=== PATIENT | male | born 1950 | race Caucasian/White ===

== ENCOUNTER 2016-11-08 08:30 | Outpatient (CLI) | payer BC, MEDICARE ==
[2016-11-08 09:11] LABS: #Basophils 0.1 thou/uL (0.0-0.2); #Eosinphils 0.3 thou/uL (0.0-0.7); #Lymphocytes 2.9 thou/uL (1.20-3.40); #Monocytes 0.7 thou/uL (0.11-0.59); #Neutrophils 4.2 thou/uL (1.40-6.50); %Basophils 1.4 % (0.0-1.0); %Eosinophils 4.1 % (0.0-10.0); %Lymphocytes 35.2 % (21.0-51.0); %Monocytes 8.8 % (0.0-10.0); %Neutrophils 50.6 % (42.0-75.0); Hemoglobin 15.3 g/dL (14.0-18.0); Mean Corpuscular HGB CONC 34.1 g/dL (32.0-36.0); Mean Corpuscular Hemoglobin 32.1 pg (27.0-31.0); Mean Corpuscular Volume 94.2 fl (80.0-94.0); Mean Platelet Volume 8.5 fL (7.4-10.4); Platelet Count 171 thou/uL (130-400); RBC Distribution Width 12.2 % (11.5-14.5); Red Blood Cell (RBC) Count 4.76 mill/uL (4.70-6.10); White Blood Cell (WBC) Count 8.3 thou/uL (4.8-10.8)
[2016-11-08 09:39] LABS: ALT (SGPT) 17 U/L (8-55); AST (SGOT) 21 U/L (5-34); Albumin 3.9 g/dL (3.4-4.8); Alkaline Phosphatase 96 U/L (40-150); Anion Gap 15 mmol/L (10-20); BUN (Urea Nitrogen) 17 mg/dL (8.4-25.7); Bilirubin, Total 1.1 mg/dL (0.2-1.2); Calc. Creatinine Clearance 0 mL/min (70-130); Calcium 9.3 mg/dL (7.8-10.44); Carbon Dioxide 28 mmol/L (23-31); Cardiac Risk 2.6 (Less than 4.5); Chloride 94 mmol/L (98-107); Cholesterol 130 mg/dL (< 200 Desired); Estimated GFR-MDRD 74; Glucose 87 mg/dL (80-115); HDL Cholesterol 50 mg/dL (>60 Neg Risk); LDL Cholesterol, Calculated 63 mg/dL; Potassium 5.2 mmol/L (3.5-5.1); Protein, Total 6.9 g/dL (5.8-8.1); Sodium 132 mmol/L (136-145); Triglycerides 83 mg/dL (Less than 150)
== END 2016-11-08 08:31 | disposition home or self-care (01) ==
LOC: BURLAB 08:30
PROVIDERS: ATTEND Internal Medicine Cardiovascular Disease
DX: I25.10 Atherosclerotic heart disease of native coronary artery without angina pectoris (principal); I10 Essential (primary) hypertension
CPT/HCPCS: 36415; 80053; 80061; 85025

== ENCOUNTER 2018-01-04 15:41 | Emergency (ER) | payer BC, MEDICARE ==
[2018-01-04] MEDS ORDERED: methylPREDNISolone Sod Succ/PF 125 MG/2 ML VIAL ONE (16:05)
[2018-01-04 16:08] LABS: #Basophils 0.1 thou/uL (0.0-0.2); #Eosinphils 0.3 thou/uL (0.0-0.7); #Lymphocytes 2.2 thou/uL (1.20-3.40); #Monocytes 1.2 thou/uL (0.11-0.59); #Neutrophils 8.1 thou/uL (1.40-6.50); %Basophils 0.7 % (0.0-1.0); %Eosinophils 2.5 % (0.0-10.0); %Lymphocytes 18.8 % (21.0-51.0); Hemoglobin 14.8 g/dL (14.0-18.0); Mean Corpuscular HGB CONC 34.6 g/dL (32.0-36.0); Mean Corpuscular Hemoglobin 30.5 pg (27.0-31.0); Mean Corpuscular Volume 88.2 fL (78.0-98.0); Mean Platelet Volume 6.8 fL (7.4-10.4); Platelet Count 176 thou/uL (130-400); RBC Distribution Width 12.5 % (11.5-14.5); Red Blood Cell (RBC) Count 4.84 mill/uL (4.70-6.10); White Blood Cell (WBC) Count 11.9 thou/uL (4.8-10.8)
[2018-01-04 16:25] LABS: ALT (SGPT) 15 U/L (8-55); AST (SGOT) 14 U/L (5-34); Albumin 3.9 g/dL (3.4-4.8); Alkaline Phosphatase 133 U/L (40-150); Anion Gap 16 mmol/L (10-20); BUN (Urea Nitrogen) 15 mg/dL (8.4-25.7); Bilirubin, Total 0.5 mg/dL (0.2-1.2); Calc. Creatinine Clearance 0 mL/min (70-130); Calcium 9.6 mg/dL (7.8-10.44); Carbon Dioxide 25 mmol/L (23-31); Chloride 102 mmol/L (98-107); Estimated GFR-MDRD 73; Globulin 3.6 g/dL (2.4-3.5); Glucose 151 mg/dL (80-115); Potassium 4.1 mmol/L (3.5-5.1); Protein, Total 7.5 g/dL (5.8-8.1); Sodium 139 mmol/L (136-145)
[2018-01-04 16:28] LABS: CKMB 2.1 ng/mL (0-6.6); Troponin I Less than 0.010 ng/mL (< 0.028)
--- NOTE | 2018-01-04 16:31 | RAD ---
PORTABLE CHEST: 01/04/18 HISTORY: Dyspnea. COMPARISON: 11/17/17. The lungs appear clear. No infiltrate or vascular congestion. Heart size within normal range. Postop changes again noted. No change from prior exam. IMPRESSION: No acute process. POS: [facility]
== END 2018-01-04 16:54 | disposition home or self-care (01) ==
LOC: BURERS 15:41
DX: J44.1 Chronic obstructive pulmonary disease with (acute) exacerbation (principal); I10 Essential (primary) hypertension; F17.210 Nicotine dependence, cigarettes, uncomplicated; Z79.899 Other long term (current) drug therapy; Z79.891 Long term (current) use of opiate analgesic
CPT/HCPCS: 71045; 80053; 82553; 83880; 84484; 85025; 93005; 94640; 96374; J2930; J7620

== ENCOUNTER 2020-03-28 14:39 | Outpatient (CLI) | payer BC, MEDICARE ==
--- NOTE | 2020-03-28 16:40 | RAD ---
RIGHT SHOULDER THREE VIEWS: 03/28/20 No fracture, dislocation, or AC joint widening was seen. Arthritic changes are present in the AC join t consistent with prominent osteophytes. A speckled sclerotic area in the proximal humeral shaft is m ost likely a small bone infarct. The visible adjacent ribs appeared intact. 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 No acute findings. POS: HOME
--- NOTE | 2020-03-28 16:42 | RAD ---
LEFT SHOULDER THREE VIEWS: 03/28/20 Prior surgery has been done on this study. There is some narrowing of the space between the humeral h ead and acromion and possibly some calcification in some of the rotator cuff tendons just above the h umeral head. Some irregularity of the distal end of the clavicle probably speaks to prior trauma here . Mild arthritic changes are present there as well. IMPRESSION: Chronic findings but no acute changes. POS: HOME
== END 2020-03-28 14:40 | disposition home or self-care (01) ==
LOC: BURRAD 14:39
PROVIDERS: ATTEND Family Medicine
DX: M25.511 Pain in right shoulder (principal); M25.512 Pain in left shoulder; M19.011 Primary osteoarthritis, right shoulder

== ENCOUNTER 2021-10-10 17:18 | Emergency (ER) | payer BC, MEDICARE ==
[2021-10-10] MEDS ORDERED: Iopamidol 370 76% 100 ML VIAL FS ONE (17:19)
[2021-10-10 18:12] LABS: Hemoglobin 12.7 g/dL (14.0-18.0); Mean Corpuscular HGB CONC 32.7 g/dL (32.0-36.0); Mean Corpuscular Hemoglobin 32.5 pg (27.0-31.0); Mean Corpuscular Volume 99.5 fL (78.0-98.0); Platelet Count 97 thou/uL (130-400); RBC Distribution Width 12.4 % (11.5-14.5); Red Blood Cell (RBC) Count 3.91 mill/uL (4.70-6.10); White Blood Cell (WBC) Count 16.6 thou/uL (4.8-10.8)
[2021-10-10 18:26] LABS: ALT (SGPT) 22 U/L (8-55); AST (SGOT) 13 U/L (5-34); Albumin 2.4 g/dL (3.4-4.8); Alkaline Phosphatase 61 U/L (40-110); Anion Gap 13 mmol/L (10-20); BUN (Urea Nitrogen) 51 mg/dL (8.4-25.7); Bilirubin, Total 0.5 mg/dL (0.2-1.2); CK (CPK) 37 U/L (30-200); Calc. Creatinine Clearance 0 mL/min (70-130); Calcium 7.3 mg/dL (7.8-10.44); Carbon Dioxide 26 mmol/L (23-31); Chloride 106 mmol/L (98-107); Globulin 2.6 g/dL (2.4-3.5); Glucose 251 mg/dL (83-110); Sodium 142 mmol/L (136-145)
[2021-10-10 18:46] LABS: Band 6 % (5-11); Lymphocytes 2 % (21-51); MDiff Complete? YES; Monocytes 1 % (0-10); Neutrophil 91 % (42-75)
[2021-10-10 21:03] LABS: Bilirubin Negative (Negative); Blood, Urine Negative (Negative); Clarity Clear (Clear); Glucose, Urine (Dipstick) 100 mg/dL (Negative); Ketone, Urine Trace mg/dL (Negative); Leukocyte Negative (Negative); Nitrite Negative (Negative); Protein, Urine (Dipstick) 100 mg/dL (Neg-Trace); Urobilinogen 0.2 mg/dL (Less than 2); pH, Urine 5.5 (5.0-9.0)
[2021-10-10 21:04] LABS: Mucous/LPF 1+ LPF (<2+); RBC/HPF 0-3 HPF (0-3); WBC/HPF 0-3 HPF (0-3)
== END 2021-10-10 22:33 | disposition short-term general hospital (02) ==
LOC: BURERS 17:18
DX: I95.9 Hypotension, unspecified (principal); E86.0 Dehydration; J44.9 Chronic obstructive pulmonary disease, unspecified; J18.9 Pneumonia, unspecified organism; J10.1 Influenza due to other identified influenza virus with other respiratory manifestations; I45.10 Unspecified right bundle-branch block; I49.9 Cardiac arrhythmia, unspecified; F17.210 Nicotine dependence, cigarettes, uncomplicated; I25.10 Atherosclerotic heart disease of native coronary artery without angina pectoris; I50.9 Heart failure, unspecified; I25.2 Old myocardial infarction; Z95.5 Presence of coronary angioplasty implant and graft; Z85.51 Personal history of malignant neoplasm of bladder; Z79.82 Long term (current) use of aspirin; Z79.899 Other long term (current) drug therapy
CPT/HCPCS: 36415; 71045; 71275; 80053; 81003; 81015; 82550; 83605; 83880; 84484; 85025; 85379; 86140; 87040; 87077; 87086; 87186; 87804; 93005; 94760; 96365; 96366; Q9967

== ENCOUNTER 2021-10-21 09:11 | Inpatient (IN) | payer BC, MEDICARE ==
[2021-10-21] MEDS ORDERED: Ondansetron ODT 4 MG TAB PO PRN (10:57)
[2021-10-21] MEDS ORDERED: Acetaminophen 325 MG TAB PO PRN (10:57)
[2021-10-21] MEDS ORDERED: Senokot S 8.6-50 MG TAB PO PRN (10:58)
[2021-10-21 11:05] LABS: #Eosinphils 0.1 thou/uL (0.0-0.7); #Lymphocytes 0.9 thou/uL (1.20-3.40); #Monocytes 0.5 thou/uL (0.11-0.59); #Neutrophils 9.4 thou/uL (1.40-6.50); %Basophils 0.4 % (0.0-1.0); %Eosinophils 0.5 % (0.0-10.0); %Lymphocytes 8.3 % (21.0-51.0); %Monocytes 4.9 % (0.0-10.0); %Neutrophils 85.9 % (42.0-75.0); Mean Corpuscular HGB CONC 31.5 g/dL (32.0-36.0); Mean Corpuscular Hemoglobin 32.2 pg (27.0-31.0); Mean Platelet Volume 8.7 fL (7.4-10.4); Platelet Count 113 thou/uL (130-400); RBC Distribution Width 12.3 % (11.5-14.5); Red Blood Cell (RBC) Count 3.73 mill/uL (4.70-6.10); White Blood Cell (WBC) Count 10.9 thou/uL (4.8-10.8)
[2021-10-21 11:24] LABS: ALT (SGPT) 24 U/L (8-55); AST (SGOT) 13 U/L (5-34); Albumin 2.8 g/dL (3.4-4.8); Alkaline Phosphatase 80 U/L (40-110); Anion Gap 16 mmol/L (10-20); BUN (Urea Nitrogen) 33 mg/dL (8.4-25.7); Bilirubin, Total 0.8 mg/dL (0.2-1.2); Calc. Creatinine Clearance 0 mL/min (70-130); Calcium 8.4 mg/dL (7.8-10.44); Carbon Dioxide 28 mmol/L (23-31); Chloride 98 mmol/L (98-107); Globulin 3.1 g/dL (2.4-3.5); Glucose 448 mg/dL (83-110); Potassium 4.4 mmol/L (3.5-5.1); Protein, Total 5.9 g/dL (5.8-8.1); Sodium 138 mmol/L (136-145)
[2021-10-21] MEDS ORDERED: Albuterol Sulfate 2.5 mg/3 ml Neb NEB PRN (11:45)
[2021-10-21] MEDS ORDERED: Potassium Chloride 20 MEQ TAB PO SCH (12:00)
[2021-10-21] MEDS ORDERED: Torsemide 20 MG TAB PO SCH (12:00)
[2021-10-21 12:14] LABS: Platelet Morphology Comment Appears Decreased; RBC Morphology Normal
[2021-10-21 14:15] VITALS: BMI 17.4
[2021-10-21] MEDS: Carvedilol 25 MG TAB PO SCH (18:00)
[2021-10-21] MEDS: Nicotine 21 MG PATCH TD SCH (18:01)
[2021-10-21] MEDS: guaiFENesin ER 600 MG TAB PO SCH (20:54)
[2021-10-21] MEDS: CLONAZEPAM 2 MG PO SCH (20:55)
[2021-10-21] MEDS: Rosuvastatin 10 MG TAB PO SCH (20:55)
[2021-10-21] MEDS: Senokot S 8.6-50 MG TAB PO SCH (20:55)
[2021-10-21] MEDS: Melatonin 3 MG TAB PO SCH (20:55)
[2021-10-21] MEDS: Famotidine 20 MG TAB PO SCH (20:55)
[2021-10-21] MEDS: Sacubitril 49 MG/Valsartan 51 MG TABLET PO SCH (20:55)
[2021-10-21] MEDS ORDERED: clonazePAM 0.5 MG TAB PO SCH (21:00)
[2021-10-21] MEDS: Mometasone/Formoterol 200/5 60 PUFF INH SCH (21:00)
[2021-10-22] MEDS: Aspirin 81 mg Enteric Coated Tablet PO SCH (08:52)
[2021-10-22] MEDS: guaiFENesin ER 600 MG TAB PO SCH ×2 (08:53→20:37)
[2021-10-22] MEDS: Sacubitril 49 MG/Valsartan 51 MG TABLET PO SCH ×2 (08:53→20:37)
[2021-10-22] MEDS: Famotidine 20 MG TAB PO SCH ×2 (08:53→20:36)
[2021-10-22] MEDS: Tamsulosin HCl 0.4 MG CAP PO SCH (08:53)
[2021-10-22] MEDS: predniSONE 5 MG TAB PO SCH (08:53)
[2021-10-22] MEDS: Clopidogrel Bisulfate 75 MG TAB PO SCH (08:53)
[2021-10-22] MEDS: Polyethylene Glycol 3350 17 GM Packet PO SCH (08:54)
[2021-10-22] MEDS: Carvedilol 25 MG TAB PO SCH ×2 (08:54→17:53)
[2021-10-22] MEDS: Escitalopram Oxalate 10 mg Tablet PO SCH (08:54)
[2021-10-22] MEDS: Senokot S 8.6-50 MG TAB PO SCH ×2 (09:00→20:37)
[2021-10-22] MEDS: Mometasone/Formoterol 200/5 60 PUFF INH SCH ×2 (09:01→20:40)
[2021-10-22] MEDS: Nicotine 21 MG PATCH TD SCH (17:53)
[2021-10-22] MEDS: Melatonin 3 MG TAB PO SCH (20:38)
[2021-10-22] MEDS: CLONAZEPAM 2 MG PO SCH (20:39)
[2021-10-22] MEDS: Rosuvastatin 10 MG TAB PO SCH (20:39)
[2021-10-23 05:06] VITALS: BP 125/66; TEMP 98.5
[2021-10-23] MEDS: Aspirin 81 mg Enteric Coated Tablet PO SCH (08:02)
[2021-10-23] MEDS: Sacubitril 49 MG/Valsartan 51 MG TABLET PO SCH (08:02)
[2021-10-23] MEDS: Famotidine 20 MG TAB PO SCH (08:03)
[2021-10-23] MEDS: Tamsulosin HCl 0.4 MG CAP PO SCH (08:03)
[2021-10-23] MEDS: guaiFENesin ER 600 MG TAB PO SCH (08:03)
[2021-10-23] MEDS: Escitalopram Oxalate 10 mg Tablet PO SCH (08:03)
[2021-10-23] MEDS: predniSONE 5 MG TAB PO SCH (08:03)
[2021-10-23] MEDS: Clopidogrel Bisulfate 75 MG TAB PO SCH (08:03)
[2021-10-23] MEDS: Mometasone/Formoterol 200/5 60 PUFF INH SCH (08:03)
[2021-10-23] MEDS: Carvedilol 25 MG TAB PO SCH (08:03)
[2021-10-23] MEDS: Senokot S 8.6-50 MG TAB PO SCH (08:05)
[2021-10-23] MEDS: Polyethylene Glycol 3350 17 GM Packet PO SCH (08:05)
== END 2021-10-23 10:00 | disposition home health service (06) | DRG 948 ==
LOC: BURMED 10:05
PROVIDERS: ADMIT Family Medicine; ATTEND Family Medicine
DX: R53.1 Weakness (principal); I50.42 Chronic combined systolic (congestive) and diastolic (congestive) heart failure; E11.9 Type 2 diabetes mellitus without complications; I25.10 Atherosclerotic heart disease of native coronary artery without angina pectoris; T38.0X5A Adverse effect of glucocorticoids and synthetic analogues, initial encounter; N40.0 Benign prostatic hyperplasia without lower urinary tract symptoms; F41.9 Anxiety disorder, unspecified; F32.A Depression, unspecified
CPT/HCPCS: 36415; 80053; 85025; 94640; 94664; J7512; J7620

== ENCOUNTER 2021-12-15 00:27 | Emergency (ER) | payer OTHER, MEDICARE ==
[2021-12-15] MEDS ORDERED: Lidocaine 1% w/Epinephrine 1:100K 20 ML VIAL ONE (00:48)
[2021-12-15] MEDS ORDERED: Bacitracin 1 PK ONE (00:48)
[2021-12-15] MEDS ORDERED: cloNIDine 0.1 MG TAB ONE (01:03)
[2021-12-15] MEDS ORDERED: Cephalexin 250 MG CAP ONE (01:59)
== END 2021-12-15 02:05 | disposition home or self-care (01) ==
LOC: BURERS 00:27
DX: S51.012A Laceration without foreign body of left elbow, initial encounter (principal); S51.812A Laceration without foreign body of left forearm, initial encounter; I25.10 Atherosclerotic heart disease of native coronary artery without angina pectoris; I25.2 Old myocardial infarction; I50.9 Heart failure, unspecified; J44.9 Chronic obstructive pulmonary disease, unspecified; F17.210 Nicotine dependence, cigarettes, uncomplicated; W01.198A Fall on same level from slipping, tripping and stumbling with subsequent striking against other object, initial encounter; Z95.0 Presence of cardiac pacemaker; Z85.51 Personal history of malignant neoplasm of bladder; Z79.82 Long term (current) use of aspirin; Z79.899 Other long term (current) drug therapy
CPT/HCPCS: 12005

== ENCOUNTER 2021-12-24 15:42 | Emergency (ER) | payer BC, MEDICARE | END 2021-12-24 16:30 | disposition home or self-care (01) | LOC: BURERS 15:42 | DX: U07.1 COVID-19 (principal); I25.10 Atherosclerotic heart disease of native coronary artery without angina pectoris; I50.9 Heart failure, unspecified; I25.2 Old myocardial infarction; J44.9 Chronic obstructive pulmonary disease, unspecified; F17.210 Nicotine dependence, cigarettes, uncomplicated; Z79.899 Other long term (current) drug therapy; Z79.82 Long term (current) use of aspirin | CPT/HCPCS: 99284; U0003; U0005 ==

== ENCOUNTER 2022-02-16 19:42 | Emergency (ER) | payer MEDICARE, BC ==
[2022-02-16 21:27] LABS: #Lymphocytes 1.1 thou/uL (1.20-3.40); #Monocytes 0.8 thou/uL (0.11-0.59); #Neutrophils 9.8 thou/uL (1.40-6.50); %Basophils 0.4 % (0.0-1.0); %Eosinophils 0.1 % (0.0-10.0); %Monocytes 6.7 % (0.0-10.0); %Neutrophils 83.8 % (42.0-75.0); Hemoglobin 12.9 g/dL (14.0-18.0); Mean Corpuscular HGB CONC 32.7 g/dL (32.0-36.0); Mean Corpuscular Hemoglobin 31.4 pg (27.0-31.0); Mean Corpuscular Volume 95.9 fL (78.0-98.0); Mean Platelet Volume 8.3 fL (7.4-10.4); Platelet Count 138 thou/uL (130-400); RBC Distribution Width 12.8 % (11.5-14.5); Red Blood Cell (RBC) Count 4.12 mill/uL (4.70-6.10); White Blood Cell (WBC) Count 11.7 thou/uL (4.8-10.8)
[2022-02-16 21:36] LABS: ALT (SGPT) 20 U/L (8-55); AST (SGOT) 16 U/L (5-34); Albumin 3.3 g/dL (3.4-4.8); Alcohol 15 mg/dL (Less than 10); Alkaline Phosphatase 94 U/L (40-110); Anion Gap 16 mmol/L (10-20); BUN (Urea Nitrogen) 26 mg/dL (8.4-25.7); Bilirubin, Total 0.4 mg/dL (0.2-1.2); Calc. Creatinine Clearance 0 mL/min (70-130); Carbon Dioxide 31 mmol/L (23-31); Chloride 95 mmol/L (98-107); Estimated GFR 69; Globulin 3.4 g/dL (2.4-3.5); Glucose 297 mg/dL (83-110); Protein, Total 6.7 g/dL (5.8-8.1); Sodium 138 mmol/L (136-145)
[2022-02-16] MEDS ORDERED: cefTRIAXone\\ROCEPHIN 2 GM VIAL ONE (21:51)
[2022-02-16] MEDS ORDERED: methylPREDNISolone Sod Succ/PF 125 MG/2 ML VIAL ONE (21:51)
[2022-02-16] MEDS ORDERED: cloNIDine 0.1 MG TAB ONE (21:51)
[2022-02-16] MEDS ORDERED: Sodium Chloride 0.9% 100 ML ONE (21:52)
== END 2022-02-16 22:32 | disposition home or self-care (01) ==
LOC: BURERS 19:42
DX: S00.03XA Contusion of scalp, initial encounter (principal); S51.811A Laceration without foreign body of right forearm, initial encounter; S61.511A Laceration without foreign body of right wrist, initial encounter; S61.411A Laceration without foreign body of right hand, initial encounter; J44.1 Chronic obstructive pulmonary disease with (acute) exacerbation; R09.1 Pleurisy; I25.10 Atherosclerotic heart disease of native coronary artery without angina pectoris; I50.9 Heart failure, unspecified; I25.2 Old myocardial infarction; F17.210 Nicotine dependence, cigarettes, uncomplicated; Z95.828 Presence of other vascular implants and grafts; Z85.51 Personal history of malignant neoplasm of bladder; W18.30XA Fall on same level, unspecified, initial encounter
CPT/HCPCS: 70450; 71045; 72125; 80053; 80307; 83880; 84484; 85025; 93005; 94640; 94760; 96365; 96375; J0696; J2930; J3490; J7620

== ENCOUNTER 2022-06-28 16:22 | Outpatient (CLI) | payer MEDICARE, OTHER ==
[2022-06-28 16:47] LABS: #Lymphocytes 0.7 thou/uL (1.20-3.40); #Monocytes 0.3 thou/uL (0.11-0.59); #Neutrophils 9.3 thou/uL (1.40-6.50); %Basophils 0.3 % (0.0-1.0); %Eosinophils 0.2 % (0.0-10.0); %Lymphocytes 6.8 % (21.0-51.0); %Monocytes 2.7 % (0.0-10.0); Hemoglobin 11.1 g/dL (14.0-18.0); Mean Corpuscular HGB CONC 30.9 g/dL (32.0-36.0); Mean Corpuscular Hemoglobin 31.3 pg (27.0-31.0); Platelet Count 89 10x3/uL (130-400); RBC Distribution Width 13.1 % (11.5-14.5); Red Blood Cell (RBC) Count 3.56 mill/uL (4.70-6.10); White Blood Cell (WBC) Count 10.4 10x3/uL (4.8-10.8)
[2022-06-28 16:57] LABS: Anion Gap 19 mmol/L (10-20); BUN (Urea Nitrogen) 68 mg/dL (8.4-25.7); Calc. Creatinine Clearance 0 mL/min (70-130); Calcium 7.8 mg/dL (7.8-10.44); Carbon Dioxide 38 mmol/L (23-31); Estimated GFR 13; Glucose 335 mg/dL (83-110)
[2022-06-28 17:01] LABS: Chloride 93 mmol/L (98-107); Sodium 145 mmol/L (136-145)
[2022-06-28 17:23] LABS: Platelet Morphology Comment Appears Decreased; RBC Morphology Normal
[2022-06-28 17:24] LABS: MDiff Complete? YES
== END 2022-06-28 16:23 | disposition home or self-care (01) ==
LOC: BURLABSP 16:22
PROVIDERS: ATTEND Internal Medicine Infectious Disease
DX: R78.81 Bacteremia (principal); Z79.2 Long term (current) use of antibiotics
CPT/HCPCS: 80048; 85025

== ENCOUNTER 2022-06-29 09:07 | Emergency (ER) | payer MEDICARE, OTHER ==
[2022-06-29 09:49] LABS: #Basophils 0.1 thou/uL (0.0-0.2); #Eosinphils 0.2 thou/uL (0.0-0.7); #Lymphocytes 1.3 thou/uL (1.20-3.40); #Monocytes 0.6 thou/uL (0.11-0.59); #Neutrophils 11.8 thou/uL (1.40-6.50); %Basophils 0.6 % (0.0-1.0); %Eosinophils 1.5 % (0.0-10.0); %Monocytes 4.2 % (0.0-10.0); %Neutrophils 84.7 % (42.0-75.0); Hemoglobin 12.7 g/dL (14.0-18.0); Mean Corpuscular Hemoglobin 31.9 pg (27.0-31.0); Mean Corpuscular Volume 99.9 fl (78.0-98.0); Mean Platelet Volume 9.4 fL (7.4-10.4); Platelet Count 100 10x3/uL (130-400); RBC Distribution Width 13.4 % (11.5-14.5); Red Blood Cell (RBC) Count 3.97 mill/uL (4.70-6.10); White Blood Cell (WBC) Count 13.9 10x3/uL (4.8-10.8)
[2022-06-29 10:14] LABS: Bilirubin Negative (Negative); Blood, Urine Trace (Negative); Clarity Clear (Clear); Glucose, Urine (Dipstick) 500 mg/dL (Negative); Ketone, Urine Negative (Negative); Leukocyte Negative (Negative); Nitrite Negative (Negative); Protein, Urine (Dipstick) 30 mg/dL (Neg-Trace); Urobilinogen 0.2 mg/dL (Less than 2)
[2022-06-29 10:14] LABS: ALT (SGPT) 14 U/L (8-55); AST (SGOT) 19 U/L (5-34); Albumin 3.4 g/dL (3.4-4.8); Alkaline Phosphatase 76 U/L (40-110); Anion Gap 20 mmol/L (10-20); BUN (Urea Nitrogen) 69 mg/dL (8.4-25.7); Bilirubin, Total 0.3 mg/dL (0.2-1.2); Calc. Creatinine Clearance 0 mL/min (70-130); Calcium 8.2 mg/dL (7.8-10.44); Carbon Dioxide 36 mmol/L (23-31); Chloride 94 mmol/L (98-107); Estimated GFR 14; Glucose 190 mg/dL (83-110); Potassium 4.1 mmol/L (3.5-5.1); Protein, Total 6.4 g/dL (5.8-8.1); Sodium 146 mmol/L (136-145)
[2022-06-29 10:29] LABS: Bacteria/HPF 1+ HPF (None Seen); WBC/HPF None Seen HPF (0-3)
[2022-06-29 10:30] LABS: Yeast-Budding Rare HPF (None Seen)
[2022-06-29 11:15] LABS: Base Excess-Venous 11.9 mmol/L (-2.0 to 3.0); Bicarbonate (HCO3v) 40.3 mmol/L (22.0-28.0); CO2 Tension (PvCO2) 72.4 mmHg (42.0-51.0); Calcium, Ionized 1.01 mmol/L (1.15-1.33); Chloride 92 mmol/L (98-107); Hemoglobin - Calc 12.3 g/dL (14.0-18.0); Potassium 3.8 mmol/L (3.5-5.1); Sodium 142 mmol/L (138-145); T. Carbon Dioxide 42.5 mmol/L (22.0-28.0); vO2 Saturation-calc 78.8 % (60.0-85.0)
[2022-06-29] MEDS ORDERED: methylPREDNISolone Sod Succ/PF 125 MG/2 ML VIAL ONE (11:59)
[2022-06-29 12:06] LABS: SARS-CoV-2 NAA Rapid Test Not Detected (NotDetected)
== END 2022-06-29 12:25 | disposition short-term general hospital (02) ==
LOC: BURERS 09:07
DX: J44.1 Chronic obstructive pulmonary disease with (acute) exacerbation (principal); R79.1 Abnormal coagulation profile; I11.0 Hypertensive heart disease with heart failure; I50.9 Heart failure, unspecified; F17.210 Nicotine dependence, cigarettes, uncomplicated; Z20.822 Contact with and (suspected) exposure to COVID-19; Z79.899 Other long term (current) drug therapy
CPT/HCPCS: 36415; 71045; 80053; 81003; 81015; 82330; 82803; 83880; 84443; 84484; 85025; 85379; 93005; 94640; 96374; J2930; J7620; U0002

== ENCOUNTER 2022-07-30 05:19 | Emergency (ER) | payer MEDICARE, OTHER ==
[2022-07-30] MEDS ORDERED: Ketorolac Tromethamine 30 MG/ML VIAL ONE (05:49)
[2022-07-30] MEDS ORDERED: Acetaminophen 325 MG TAB ONE (05:50)
[2022-07-30 06:25] LABS: #Basophils 0.2 thou/uL (0.0-0.2); #Lymphocytes 1.2 thou/uL (1.20-3.40); #Neutrophils 17.1 thou/uL (1.40-6.50); %Basophils 0.9 % (0.0-1.0); %Eosinophils 0.2 % (0.0-10.0); %Lymphocytes 6.2 % (21.0-51.0); %Monocytes 5.3 % (0.0-10.0); %Neutrophils 87.4 % (42.0-75.0); Mean Corpuscular HGB CONC 33.2 g/dL (32.0-36.0); Mean Corpuscular Hemoglobin 31.7 pg (27.0-31.0); Mean Corpuscular Volume 95.6 fl (78.0-98.0); Mean Platelet Volume 8.3 fL (7.4-10.4); Platelet Count 193 10x3/uL (130-400); RBC Distribution Width 16.3 % (11.5-14.5); Red Blood Cell (RBC) Count 3.16 mill/uL (4.70-6.10); White Blood Cell (WBC) Count 19.6 10x3/uL (4.8-10.8)
[2022-07-30 06:40] LABS: ALT (SGPT) 34 U/L (8-55); AST (SGOT) 26 U/L (5-34); Albumin 2.8 g/dL (3.4-4.8); Anion Gap 13 mmol/L (10-20); BUN (Urea Nitrogen) 67 mg/dL (8.4-25.7); Calc. Creatinine Clearance 0 mL/min (70-130); Calcium 8.5 mg/dL (7.8-10.44); Carbon Dioxide 23 mmol/L (23-31); Chloride 107 mmol/L (98-107); Estimated GFR 43; Globulin 3.4 g/dL (2.4-3.5); Glucose 78 mg/dL (83-110); Magnesium 1.5 mg/dL (1.6-2.6); Protein, Total 6.2 g/dL (5.8-8.1); Sodium 138 mmol/L (136-145)
[2022-07-30 06:48] LABS: SARS-CoV-2 NAA Rapid Test Not Detected (NotDetected)
[2022-07-30] MEDS ORDERED: Norepinephrine 4 MG/4 ML VIAL ONE ×2 (07:10→07:11)
[2022-07-30] MEDS ORDERED: Lidocaine 2% 6 ML SYR ONE (07:25)
[2022-07-30] MEDS ORDERED: Magnesium 2 GM/50 ML BAG (IN WATER) ONE (07:52)
[2022-07-30 07:59] LABS: Bilirubin Negative (Negative); Blood, Urine Negative (Negative); Clarity Clear (Clear); Glucose, Urine (Dipstick) Negative (Negative); Ketone, Urine Negative (Negative); Leukocyte Negative (Negative); Nitrite Negative (Negative); Protein, Urine (Dipstick) 30 mg/dL (Neg-Trace); Urobilinogen 0.2 mg/dL (Less than 2)
[2022-07-30 08:09] LABS: Bacteria/HPF None Seen HPF (None Seen); RBC/HPF None Seen HPF (0-3); Squamous Epithelial None Seen HPF (0-3); WBC/HPF 0-3 HPF (0-3)
[2022-07-30 08:20] LABS: Alkaline Phosphatase 121 U/L (40-110); Lipase 25 U/L (8-78)
[2022-07-30 14:19] LABS: Bilirubin, Total 0.5 mg/dL (0.2-1.2)
== END 2022-07-30 08:00 | disposition short-term general hospital (02) ==
LOC: BURERS 05:19
DX: A41.9 Sepsis, unspecified organism (principal); J44.9 Chronic obstructive pulmonary disease, unspecified; I11.0 Hypertensive heart disease with heart failure; I50.9 Heart failure, unspecified; F17.210 Nicotine dependence, cigarettes, uncomplicated; Z20.822 Contact with and (suspected) exposure to COVID-19; Z79.82 Long term (current) use of aspirin
CPT/HCPCS: 36415; 36556; 51702; 71045; 80053; 81003; 81015; 83605; 83690; 83735; 83880; 84145; 84484; 85025; 85379; 87040; 87077; 87081; 87149; 87186; 87430; 87804; 93005; 96365; 96375; J1885; J1956; J3475; U0002

== ENCOUNTER 2022-08-30 15:29 | Outpatient (CLI) | payer MEDICARE, OTHER | END 2022-08-30 15:30 | disposition home or self-care (01) | LOC: BURRAD 15:29 | PROVIDERS: ATTEND Family Medicine | DX: M25.511 Pain in right shoulder (principal); R07.81 Pleurodynia; J45.998 Other asthma; L98.8 Other specified disorders of the skin and subcutaneous tissue; S22.41XD Multiple fractures of ribs, right side, subsequent encounter for fracture with routine healing; S42.001D Fracture of unspecified part of right clavicle, subsequent encounter for fracture with routine healing ==

== ENCOUNTER 2022-11-01 17:55 | Outpatient (CLI) | payer MEDICARE, OTHER ==
[2022-11-01 18:13] LABS: #Basophils 0.1 thou/uL (0.0-0.2); #Lymphocytes 2.3 thou/uL (1.20-3.40); #Monocytes 0.5 thou/uL (0.11-0.59); #Neutrophils 10.3 thou/uL (1.40-6.50); %Basophils 0.6 % (0.0-1.0); %Eosinophils 0.2 % (0.0-10.0); %Lymphocytes 17.5 % (21.0-51.0); %Monocytes 3.9 % (0.0-10.0); %Neutrophils 77.8 % (42.0-75.0); Mean Corpuscular HGB CONC 30.4 g/dL (32.0-36.0); Mean Corpuscular Hemoglobin 28.2 pg (27.0-31.0); Mean Corpuscular Volume 92.9 fl (78.0-98.0); Mean Platelet Volume 6.6 fL (7.4-10.4); Platelet Count 245 10x3/uL (130-400); RBC Distribution Width 15.8 % (11.5-14.5); Red Blood Cell (RBC) Count 3.92 mill/uL (4.70-6.10); White Blood Cell (WBC) Count 13.2 10x3/uL (4.8-10.8)
[2022-11-01 18:22] LABS: Vancomycin, Trough 18.6 ug/mL
[2022-11-01 18:23] LABS: Anion Gap 16 mmol/L (10-20); BUN (Urea Nitrogen) 35 mg/dL (8.4-25.7); Calc. Creatinine Clearance 0 mL/min (70-130); Calcium 8.9 mg/dL (7.8-10.44); Carbon Dioxide 22 mmol/L (23-31); Chloride 106 mmol/L (98-107); Estimated GFR 45; Glucose 195 mg/dL (83-110); Potassium 4.8 mmol/L (3.5-5.1); Sodium 139 mmol/L (136-145)
== END 2022-11-01 17:56 | disposition home or self-care (01) ==
LOC: BURLABSP 17:55
PROVIDERS: ATTEND Internal Medicine Infectious Disease
DX: I50.20 Unspecified systolic (congestive) heart failure (principal); Z79.2 Long term (current) use of antibiotics
CPT/HCPCS: 80048; 80202; 85025

== ENCOUNTER 2022-12-21 11:05 | Emergency (ER) | payer MEDICARE, OTHER ==
[2022-12-21 12:17] LABS: #Basophils 0.1 thou/uL (0.0-0.2); #Eosinphils 0.1 thou/uL (0.0-0.7); #Lymphocytes 0.9 thou/uL (1.20-3.40); #Monocytes 0.4 thou/uL (0.11-0.59); %Eosinophils 0.6 % (0.0-10.0); %Lymphocytes 7.6 % (21.0-51.0); %Monocytes 3.7 % (0.0-10.0); %Neutrophils 87.1 % (42.0-75.0); Hematocrit 39.9 % (42.0-52.0); Hemoglobin 11.6 g/dL (14.0-18.0); Mean Corpuscular Hemoglobin 27.3 pg (27.0-31.0); Mean Corpuscular Volume 94.2 fl (78.0-98.0); Mean Platelet Volume 7.1 fL (7.4-10.4); Platelet Count 154 10x3/uL (130-400); RBC Distribution Width 17.1 % (11.5-14.5); Red Blood Cell (RBC) Count 4.24 mill/uL (4.70-6.10); White Blood Cell (WBC) Count 11.4 10x3/uL (4.8-10.8)
[2022-12-21 12:18] LABS: Anisocytosis SLIGHT = 6-15 cells (100X) (0-5/hpf); MDiff Complete? YES; Ovalocytes SLIGHT = 2-5 cells (100X) (0-1/hpf); Poikilocytosis SLIGHT = 6-15 cells (100X) (0-5/hpf); Schistocytes SLIGHT = 2-5 cells (100X) (0-1/hpf)
[2022-12-21 12:32] LABS: ALT (SGPT) 27 U/L (8-55); AST (SGOT) 20 U/L (5-34); Alkaline Phosphatase 103 U/L (40-110); Anion Gap 14 mmol/L (10-20); BUN (Urea Nitrogen) 36 mg/dL (8.4-25.7); Bilirubin, Total 0.3 mg/dL (0.2-1.2); Calc. Creatinine Clearance 0 mL/min (70-130); Calcium 10.1 mg/dL (7.8-10.44); Carbon Dioxide 31 mmol/L (23-31); Chloride 100 mmol/L (98-107); Estimated GFR 51; Globulin 3.6 g/dL (2.4-3.5); Glucose 268 mg/dL (83-110); Potassium 4.8 mmol/L (3.5-5.1); Protein, Total 7.6 g/dL (5.8-8.1); Sodium 140 mmol/L (136-145)
[2022-12-21] MEDS ORDERED: Doxycycline 100 MG CAP ONE (13:29)
[2022-12-21] MEDS ORDERED: methylPREDNISolone Sod Succ/PF 125 MG/2 ML VIAL ONE (13:29)
[2022-12-21] MEDS ORDERED: Ipratropium/Albuterol 3 ML NEB ONE (13:29)
[2022-12-21 14:43] LABS: Lactic Acid 1.6 mmol/L (0.5-2.2)
== END 2022-12-21 14:52 | disposition home or self-care (01) ==
LOC: BURERS 11:05
DX: J44.1 Chronic obstructive pulmonary disease with (acute) exacerbation (principal); I11.0 Hypertensive heart disease with heart failure; I50.9 Heart failure, unspecified; E11.9 Type 2 diabetes mellitus without complications; I25.10 Atherosclerotic heart disease of native coronary artery without angina pectoris; I48.91 Unspecified atrial fibrillation; F17.210 Nicotine dependence, cigarettes, uncomplicated; Z95.1 Presence of aortocoronary bypass graft; Z79.82 Long term (current) use of aspirin; Z79.899 Other long term (current) drug therapy; J44.9 Chronic obstructive pulmonary disease, unspecified
CPT/HCPCS: 36415; 71046; 71250; 80053; 83605; 83880; 84484; 85025; 93005; 96361; 96374; J2930; J7620